=== PATIENT | female | born 1990 | race Hispanic/Latino ===

== ENCOUNTER 2017-09-21 11:26 | Emergency (ER) | payer SELFPAY ==
[~2017-09-21] VITALS: Ht 152.4 cm; Wt 79.4 kg
[2017-09-21] MEDS ORDERED: AZITHROMYCIN 250 MG TAB PO STA (11:39)
[2017-09-21] MEDS ORDERED: CEFTRIAXONE SOD 250 MG VIAL IM ONE (11:45)
[2017-09-21] MEDS ORDERED: METRONIDAZOLE 250 MG TAB PO ONE (11:45)
[2017-09-21] MEDS ORDERED: AZITHROMYCIN 250 MG TAB PO ONE (12:45)
[2017-09-21] MEDS ORDERED: LIDOCAINE HCL 1% 2 ML AMP ONE (12:48)
[2017-09-21 12:55] LABS: BILIRUBIN,URINE NEGATIVE (NEGATIVE); COLOR,URINE YELLOW (YELLOW); KETONES,URINE NEGATIVE (NEGATIVE); LEUKOCYTE ESTERASE ,URINE NEGATIVE (NEGATIVE); NITRITE,URINE NEGATIVE (NEGATIVE); PREGNANCY TEST, URINE NEGATIVE (NEGATIVE); PROTEIN,URINE DIPSTICK NEGATIVE (NEGATIVE); URINE UROBILINOGEN 0.2 mg/dL (0.2 - 1)
[2017-09-21 12:56] LABS: CLARITY,URINE SL CLOUDY (CLEAR)
[2017-09-21] MEDS ORDERED: METRONIDAZOLE 500 MG TAB PO ONE (13:00)
[2017-09-21] MEDS ORDERED: LIDOCAINE HCL 1% LOCAL INJ 20 ML VIAL INJ ONE (13:00)
[2017-09-21 13:08] LABS: BACTERIA,URINE RARE /HPF; RBC,URINE 0-5 /HPF (0-5); WBC,URINE (MAN) 0-5 /HPF (0-5)
[2017-09-21 13:09] LABS: EPITHELIAL CELLS,URINE MANY /LPF
[2017-09-21 13:21] VITALS: BP 122/87
== END 2017-09-21 13:41 | disposition home or self-care (01) ==
LOC: ER 11:26
DX: N89.8 Other specified noninflammatory disorders of vagina (principal)
CPT/HCPCS: 81001; 81025; 87086; 87210; 87491; 87591; 99284; J0696; J2001

== ENCOUNTER 2017-10-21 12:12 | Emergency (ER) | payer SELFPAY ==
[~2017-10-21] VITALS: Ht 149.9 cm; Wt 74.4 kg
--- OUTSIDE RECORDS SUMMARY | 2017-10-21 12:15 | XMS REPORT | Continuity of Care Document ---
Author Author [facility] Organization [facility] Address [address] [place] [address] Phone Unavailable Care Team Providers Care Special Education Teaching Assistant Name Role Phone NO, PCP PCP Unavailable Advance Directives Directive Response Recorded Date/Time Does the patient have an advance directive? No 01/27/13 10:06pm If yes, is advance directive on file with [facility]? No 01/27/13 10:06pm If not on file with [facility] will patient provide a copy? No 01/27/13 10:07pm Do you have a Directive to Physician? No 09/21/17 1:20pm Do you have a Medical Power of Client Server Programmer? No 09/21/17 1:20pm Do you have an out of hospital Do Not Resuscitate Order? No 09/21/17 1:20pm Do you have any special needs we should be aware of? No 09/21/17 1:20pm Do you have a support person here with you today? Yes 09/21/17 1:20pm Did patient receive Notice of Privacy Practices? Yes 09/21/17 1:20pm Did patient receive patient rights and responsibilities? Yes 09/21/17 1:20pm Problems No problem information available. Medications No known medications. Social History Smoking Status Start Date Stop Date Current every day smoker Hospital Discharge Instructions No hospital discharge instruction information available. Plan of Care Discharge Date 09/21/17 1:41pm Disposition HOME, SELF-CARE Condition at Discharge Stable Instructions/Education Provided Safe Sex Bacterial Vaginosis Forms Provided Work/School Excuse Prescriptions See Medication Section Referrals СЕРГЕЙ SALAZAR MD Address: [address] [address] DENISE GALE MD Address: [address] [place] [address] SHARAN DALLAS MD Address: [address] [place] [address] Additional Instructions/Education Strict pelvic rest as discussed at the bedside. 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 Return to the ER for any abdominal pain, flank pain, fever, or any new concerns. Functional Status No functional status information available. Allergies, Adverse Reactions, Alerts No known allergies. Immunizations No immunization information available. Vital Signs Acute Vital Signs Vital Response Date/Time Pulse Pulse Rate (adult) 59 bpm (60 - 90) 09/21/2017 1:21pm Respiratory Rate 18 bpm (12 - 24) 09/21/2017 1:21pm Blood Pressure 122/87 mm Hg 09/21/2017 1:21pm Height 5 ft 0 in 09/21/2017 11:30am Weight 175 lb 09/21/2017 11:30am Body Mass Index 34.2 kg/m^2 09/21/2017 11:30am Results Laboratory Results Test Name Result Units Flags Reference Collection Date/Time Result Date/ Time Comments Urine Color YELLOW YELLOW 09/21/2017 11:55am 09/21/2017 12:56pm Urine Clarity SL CLOUDY CLEAR 09/21/2017 11:55am 09/21/2017 12:56pm Urine Specific [place] 1.015 1.010-1.025 09/21/2017 11:55am 2017 12:56pm Urine pH 5 5 - 7 09/21/2017 11:55am 09/21/2017 12:56pm Urine Leukocyte Esterase NEGATIVE NEGATIVE 09/21/2017 11:55am 2017 12:56pm Urine Nitrite NEGATIVE NEGATIVE 09/21/2017 11:55am 09/21/2017 12: 56pm Urine Protein NEGATIVE NEGATIVE 09/21/2017 11:55am 09/21/2017 12: 56pm Urine Glucose (UA) NEGATIVE NEGATIVE 09/21/2017 11:55am 09/21/2017 12 :56pm Urine Ketones NEGATIVE NEGATIVE 09/21/2017 11:55am 09/21/2017 12: 56pm Urine Urobilinogen 0.2 mg/dL 0.2 - 1 09/21/2017 11:55am 09/21/2017 12: 56pm Urine Bilirubin NEGATIVE NEGATIVE 09/21/2017 11:55am 09/21/2017 12: 56pm Urine Blood 2+ H NEGATIVE 09/21/2017 11:55am 09/21/2017 12:56pm Urine WBC 0-5 /HPF 0-5 09/21/2017 11:55am 09/21/2017 1:09pm Urine RBC 0-5 /HPF 0-5 09/21/2017 11:55am 09/21/2017 1:09pm Urine Bacteria RARE /HPF NONE 09/21/2017 11:55am 09/21/2017 1:09pm Urine Epithelial Cells MANY /LPF NONE 09/21/2017 11:55am 09/21/2017 1: 09pm Urine Test NEGATIVE NEGATIVE 09/21/2017 11:55am 09/21/2017 12:55pm Procedures No procedure information available. Encounters Encounter Location Arrival/Admit Date Discharge/Depart Date Attending Provider Departed Emergency Room [facility] 09/21/17 11:26am 09/21 1:41pm OLYA CROW MD
[2017-10-21 12:39] VITALS: BP 122/78
== END 2017-10-21 13:11 | disposition home or self-care (01) ==
LOC: ER 12:12
DX: K62.89 Other specified diseases of anus and rectum (principal); K64.9 Unspecified hemorrhoids
CPT/HCPCS: 99282

== ENCOUNTER 2018-02-03 13:54 | Emergency (ER) | payer SELFPAY ==
[~2018-02-03] VITALS: Ht 149.9 cm; Wt 74.8 kg
[2018-02-03 14:50] LABS: PREGNANCY TEST, URINE NEGATIVE (NEGATIVE)
[2018-02-03 14:51] LABS: BILIRUBIN,URINE NEGATIVE (NEGATIVE); CLARITY,URINE CLEAR (CLEAR); COLOR,URINE YELLOW (YELLOW); KETONES,URINE NEGATIVE (NEGATIVE); LEUKOCYTE ESTERASE ,URINE 1+ (NEGATIVE); NITRITE,URINE NEGATIVE (NEGATIVE); PROTEIN,URINE DIPSTICK TRACE (NEGATIVE); URINE UROBILINOGEN 0.2 mg/dL (0.2 - 1)
[2018-02-03 15:03] LABS: BACTERIA,URINE RARE /HPF; EPITHELIAL CELLS,URINE MODERATE /LPF; MUCUS,URINE FEW (RARE); RBC,URINE 0-5 /HPF (0-5)
== END 2018-02-03 15:24 | disposition home or self-care (01) ==
LOC: ER 13:54
DX: N89.8 Other specified noninflammatory disorders of vagina (principal)
CPT/HCPCS: 81001; 81025; 87086; 99283

== ENCOUNTER 2018-04-01 08:50 | Emergency (ER) | payer SELFPAY ==
[~2018-04-01] VITALS: Ht 149.9 cm; Wt 74.8 kg
[2018-04-01 10:03] LABS: BILIRUBIN,URINE NEGATIVE (NEGATIVE); CLARITY,URINE SL CLOUDY (CLEAR); COLOR,URINE YELLOW (YELLOW); KETONES,URINE NEGATIVE (NEGATIVE); LEUKOCYTE ESTERASE ,URINE TRACE (NEGATIVE); NITRITE,URINE NEGATIVE (NEGATIVE); PREGNANCY TEST, URINE NEGATIVE (NEGATIVE); PROTEIN,URINE DIPSTICK NEGATIVE (NEGATIVE); URINE UROBILINOGEN 0.2 mg/dL (0.2 - 1)
[2018-04-01 10:20] LABS: AMORPHOUS SEDIMENT,URINE FEW (FEW); EPITHELIAL CELLS,URINE MODERATE /LPF; MUCUS,URINE FEW (RARE)
[2018-04-01] MEDS ORDERED: DOXYCYCLINE HY100 MG PO (11:01)
[2018-04-01 11:35] VITALS: BP 116/89
== END 2018-04-01 11:43 | disposition home or self-care (01) ==
LOC: ER 08:50
DX: N89.8 Other specified noninflammatory disorders of vagina (principal); F43.10 Post-traumatic stress disorder, unspecified; F17.210 Nicotine dependence, cigarettes, uncomplicated
CPT/HCPCS: 81001; 81025; 87491; 87591; 99283